=== PATIENT | male | born 1960 | race African-American/Black ===

== ENCOUNTER 2016-11-12 03:54 | Inpatient (IN) | payer MEDICARE, MEDICAID ==
[2016-11-12 04:12] LABS: EOS % 3.5 % (0-6); GRAN % 51.1 % (47-80); HEMATOCRIT 44.4 % (42.0-52.0); HEMOGLOBIN 15.6 gm/dl (14.0-18.0); LYMPH % 35.7 % (16-45); MEAN CORPUSCULAR HGB CONC 35.1 g/dl (32-36); MEAN PLATELET VOLUME 11.2 fl (7.4-10.4); MONO % 8.7 % (0-9); PLATELET COUNT 191 K/uL (130-400); RED BLOOD COUNT 4.31 M/uL (4.40-5.70); RED CELL DISTRIBUTION WIDTH 11.3 % (11.5-14.5); WHITE BLOOD COUNT W/O DIFF 8.4 K/uL (4.2-12.2)
[2016-11-12 04:14] LABS: MEAN CORPUSCULAR HEMOGLOBIN 36.1 pg (27-33)
[2016-11-12 04:21] LABS: BLOOD UREA NITROGEN 10 mg/dL (9-20); CREATININE 0.8 mg/dL (0.66-1.25); EST GLOMERULAR FILTRATION RATE > 60 ml/min; GLUCOSE,RANDOM 114 mg/dL (70-110)
[2016-11-12] MEDS ORDERED: ASPIRIN 81 MG CHEWABLE TABLET PO ONE (04:24)
[2016-11-12] MEDS ORDERED: MAGNESIUM HYDROXIDE/AL HYDROX 30 ML, LIDOCAINE VISC 2% 200 MG PO ONE ×2 (04:26)
[2016-11-12 04:33] LABS: CKMB 34.7 ug/L (0-6)
[2016-11-12 04:36] LABS: TROPONIN I < 0.012 ng/mL (0.00-0.034)
[2016-11-12 04:37] LABS: CREATINE PHOSPHOKINASE > 3200 U/L (55-170)
[2016-11-12] MEDS ORDERED: 0.9 % SODIUM CHLORIDE 1,000 ML BAG IV ONE (04:40)
[2016-11-12 05:04] LABS: CKMB RELATIVE INDEX 1.11 % (0-4)
[2016-11-12 05:08] LABS: URINE APPEARANCE CLEAR; URINE BILIRUBIN NEGATIVE (NEGATIVE); URINE BLOOD NEGATIVE (NEGATIVE); URINE COLOR YELLOW; URINE GLUCOSE (UA) NEGATIVE (NEGATIVE); URINE KETONE NEGATIVE (NEGATIVE); URINE LEUKOCYTE ESTERASE NEGATIVE (NEGATIVE); URINE NITRITE NEGATIVE (NEGATIVE); URINE PROTEIN NEGATIVE (NEGATIVE)
--- NOTE | 2016-11-12 05:22 | Emergency Department Record ---
History of Present Illness - General Chief Complaint: Chest Pain Stated Complaint: CHEST PAIN Time Seen by Provider: 11/12/16 04:58 Source: Patient, EMS Mode of Arrival: EMS Limitations: No limitations - History of Present Illness Initial Comments: pt c/o of sharp chest pain on right intermittant. pt also c/o bilateral ankle pain from playing basketball today. pt is a poor historian Complaint: Chest pain Onset/Timin -: Days(s) Pain Location: Left chest Pain Radiation: None Severity: Severe Consistency: Intermittent Improves With: Nothing Worsens With: Nothing Anginal Symptoms: Dyspnea Treatments Prior to Arrival: None - Related Data Home Medications Medication Instructions Recorded Confirmed Last Taken Aspirin Enteric-Coated [Ecotrin] 81 mg PO DAILY 02/04/14 11/12/16 11/11/16 Atenolol/Chlorthalidone [Tenoretic 1 each PO DAILY 02/04/14 11/12/16 11/11/16 100 Tablet] Famotidine [Pepcid] 20 mg PO BID 02/04/14 11/12/16 11/11/16 Fluphenazine HCl 10 mg PO QPM 02/04/14 11/12/16 11/11/16 Gabapentin [Neurontin] 600 mg PO TID 02/04/14 11/12/16 11/11/16 Loratadine [Claritin] 10 mg PO DAILY 02/04/14 11/12/16 11/11/16 Loxapine Succinate [Loxapine] 25 mg PO QHS 02/04/14 11/12/16 11/11/16 Loxapine Succinate [Loxapine] 100 mg PO QHS 02/04/14 11/12/16 11/11/16 Olanzapine [Zyprexa] 40 mg PO QHS 02/04/14 11/12/16 11/11/16 Tamsulosin HCl [Flomax] 0.4 mg PO DAILY 02/04/14 11/12/16 11/11/16 Brimonidine Tartrate [Alphagan P] 1 drop OP BID 09/15/15 11/12/16 11/11/16 Clonazepam [Klonopin] 0.5 mg PO BID 09/15/15 11/12/16 11/11/16 Naproxen [Naprosyn] 500 mg PO Q12H 09/15/15 11/12/16 11/11/16 Acetaminophen [Tylenol 325Mg] 325 mg PO TID PRN 11/12/16 11/12/16 Unknown Albuterol Sulfate [Ventolin Hfa] 1 - 2 puff IH .EVERY 4-6 HOURS PRN 11/12/1611/2211/12/16 Budesonide/Formoterol Fumarate 2 inh IH BID 11/12/16 11/12/16 11/11/16 [Symbicort 160-4.5 Mcg Inhaler] Cholecalciferol (Vitamin D3) 2,000 unit PO DAILY 11/12/16 11/12/16 11/11/16 [Vitamin D3] Docusate Sodium [Colace] 100 mg PO QHS PRN 11/12/16 11/12/16 Unknown Fluphenazine HCl 5 mg PO QAM 11/12/16 11/12/16 11/11/16 Fluticasone/Salmeterol [Advair 1 each IH BID 11/12/16 11/12/16 11/11/16 250-50 Diskus] Lidocaine Visc 2% 1 ml PO Q2H PRN 11/12/16 11/12/16 Unknown Melatonin 10 mg PO QHS 11/12/16 11/12/16 11/11/16 Multivitamin [Multi-Vitamin Daily] 1 each PO DAILY 11/12/16 11/12/16 11/11/16 Omeprazole 20 mg PO DAILY 11/12/16 11/12/16 11/11/16 Tiotropium [place] [Spiriva] 2 inh IH DAILY 11/12/16 11/12/16 11/11/16 Allergies Allergy/AdvReac Type Severity Reaction Status Date / Time No Known Drug Allergies Allergy Verified 05/05/15 11:45 Travel Screening - Travel/Exposure Within Last 30 Days Have you traveled within the last 30 days?: No - Travel Symptoms Symptom Screening: None Review of Systems Reviewed: No additional complaints except as noted below Constitutional: Reports: As per HPI. Denies: Chills, Fever, Malaise, Night sweats, Weakness, Weight change Eyes: Reports: As per HPI. Denies: Eye discharge, Eye pain, Photophobia, Vision change ENT: Reports: As per HPI. Denies: Congestion, Dental pain, Ear pain, Epistaxis , Hearing loss, Throat pain Respiratory: Reports: As per HPI. Denies: Cough, Dyspnea, Hemoptysis, Stridor, Wheezes Cardiovascular: Reports: As per HPI. Denies: Arrhythmia, Chest pain, Dyspnea on exertion, Edema, Murmurs, Orthopnea, Palpitations, Paroxysmal nocturnal dyspnea, Rheumatic Fever, Syncope Endocrine: Reports: As per HPI. Denies: Fatigue, Heat or cold intolerance, Polydipsia, Polyuria Gastrointestinal: Reports: As per HPI. Denies: Abdominal pain, Constipation, Diarrhea, Hematemesis, Hematochezia, Melena, Nausea, Vomiting Genitourinary: Reports: As per HPI. Denies: Dysuria, Frequency, Hematuria, Incontinence, Retention, Testicular pain, Testicular mass, Urgency Musculoskeletal: Reports: As per HPI. Denies: Arthralgia, Back pain, Gout, Joint swelling, Myalgia, Neck pain Skin: Reports: As per HPI. Denies: Bruising, Change in color, Change in hair/ nails, Lesions, Pruritus, Rash Neurological: Reports: As per HPI. Denies: Abnormal gait, Confusion, Headache, Numbness, Paresthesias, Seizure, Tingling, Tremors, Vertigo, Weakness Psychiatric: Reports: As per HPI. Denies: Anxiety, Auditory hallucinations, Depression, Homicidal thoughts, Suicidal thoughts, Visual hallucinations Hematological/Lymphatic: Reports: As per HPI. Denies: Anemia, Blood Clots, Easy bleeding, Easy bruising, Swollen glands Past Medical History - SOCIAL HISTORY Smoking Status: Light tobacco smoker (<10/day) Alcohol Use: None Drug Use: None - RESPIRATORY Hx Respiratory Disorders: Yes Hx Asthma: Yes - CARDIOVASCULAR Hx Cardio Disorders: Yes Hx Hypertension: Yes - NEURO Hx Neuro Disorders: Yes Hx Headaches: Yes - GI Hx GI Disorders: Yes Hx Reflux: Yes - Hx Genitourinary Disorders: No - ENDOCRINE Hx Endocrine Disorders: No Hx Diabetes: No Hx Thyroid Disease: No - MUSCULOSKELETAL Hx Musculoskeletal Disorders: Yes Hx Arthritis: Yes - PSYCH Hx Psych Problems: No - HEMATOLOGY/ONCOLOGY Hx Hematology/Oncology Disorders: Yes Comment:: HEP C Family Medical History Any Significant Family History?: No Family Hx Comment (NOT TO BE USED IN PLACE OF ITEMS BELOW): unknown Physical Exam - General General Appearance: Alert, Oriented x3, Cooperative, Mild distress, Other (poor historian) - Head Head exam: Normal inspection - Eye Eye exam: Normal appearance, PERRL, EOMI Pupils: Normal accommodation - ENT ENT exam: Normal exam, Mucous membranes moist, Normal external ear exam, Normal orophraynx Ear exam: Normal external inspection. negative: External canal tenderness Nasal Exam: Normal inspection. negative: Discharge, Sinus tenderness Mouth exam: Normal external inspection, Tongue normal Teeth exam: Normal inspection. negative: Dental caries Throat exam: Normal inspection. negative: Tonsillar erythema, Tonsillar exudate - Neck Neck exam: Normal inspection, Full ROM. negative: Tenderness - Respiratory Respiratory exam: Normal lung sounds bilaterally. negative: Respiratory distress - Cardiovascular Cardiovascular Exam: Regular rate, Normal rhythm, Normal heart sounds - GI/Abdominal GI/Abdominal exam: Soft, Normal bowel sounds. negative: Tenderness - Rectal Rectal exam: Deferred - exam: Deferred - Extremities Extremities exam: Normal inspection, Full ROM, Normal capillary refill, Tenderness (bilateral ankles w swelling) - Back Back exam: Reports: Normal inspection, Full ROM. 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 ADM/Transfer/OP Study) - Data Complexity MDM Data: Labs Ordered and/or Reviewed, X-Ray Ordered and/or Reviewed, EKG Ordered and/or Reviewed - Lab Data Result diagrams: 11/12/16 03:45 11/12/16 03:45 Lab Results 11/12/16 11/12/16 11/12/16 Range/Units 03:45 03:45 03:45 WBC 8.4 (4.2-12.2) K/uL Corrected WBC RBC 4.31 L (4.40-5.70) M/uL Hgb 15.6 (14.0-18.0) gm/dl Hct 44.4 (42.0-52.0) % MCV 103.0 H (81-97) fl MCH 36.1 H (27-33) pg MCHC 35.1 (32-36) g/dl RDW 11.3 L (11.5-14.5) % Plt Count 191 (130-400) K/uL MPV 11.2 H (7.4-10.4) fl Gran % 51.1 (47-80) % Lymphocytes % 35.7 (16-45) % Monocytes % 8.7 (0-9) % Eosinophils % 3.5 (0-6) % Basophils % 1.0 (0-6) % D-Dimer 0.53 (0-0.59) mg/L FEU Sodium 139 (136-145) mmol/L Potassium 3.1 L (3.5-5.1) mmol/L Chloride 102 (98-107) mmol/L Carbon Dioxide 26.0 (22-30) mmol/L Anion Gap 11.0 (7-16) BUN 10 (9-20) mg/dL Creatinine 0.8 (0.66-1.25) mg/dL Estimated GFR > 60 ml/min Random Glucose 114 H (70-110) mg/dL Calcium 9.0 (8.5-10.1) mg/dL Creatine Kinase > 3200 H (55-170) U/L CK-MB (CK-2) 34.7 H (0-6) ug/L CK-MB (CK-2) Rel Index 1.11 (0-4) % Troponin I < 0.012 (0.00-0.034) ng/mL NT-Pro-B Natriuret Pep (<125) pg/mL Urine Color Urine Appearance Urine pH (5.0-8.0) Ur Specific [place] (1.002-1.030) Urine Protein (NEGATIVE) Urine Glucose (UA) (NEGATIVE) Urine Ketones (NEGATIVE) Urine Blood (NEGATIVE) Urine Nitrite (NEGATIVE) Urine Bilirubin (NEGATIVE) Urine Urobilinogen (0.20 - 1.00) E.U./dL Ur Leukocyte Esterase (NEGATIVE) 11/12/16 11/12/16 11/12/16 Range/Units 03:45 03:45 04:24 WBC Cancelled (4.2-12.2) K/uL Corrected WBC Cancelled RBC Cancelled (4.40-5.70) M/uL Hgb Cancelled (14.0-18.0) gm/dl Hct Cancelled (42.0-52.0) % MCV Cancelled (81-97) fl MCH Cancelled (27-33) pg MCHC Cancelled (32-36) g/dl RDW Cancelled (11.5-14.5) % Plt Count Cancelled (130-400) K/uL MPV Cancelled (7.4-10.4) fl Gran % Cancelled (47-80) % Lymphocytes % Cancelled (16-45) % Monocytes % Cancelled (0-9) % Eosinophils % Cancelled (0-6) % Basophils % Cancelled (0-6) % D-Dimer (0-0.59) mg/L FEU Sodium (136-145) mmol/L Potassium (3.5-5.1) mmol/L Chloride (98-107) mmol/L Carbon Dioxide (22-30) mmol/L Anion Gap (7-16) BUN (9-20) mg/dL Creatinine (0.66-1.25) mg/dL Estimated GFR ml/min Random Glucose (70-110) mg/dL Calcium (8.5-10.1) mg/dL Creatine Kinase 3104 H (55-170) U/L CK-MB (CK-2) (0-6) ug/L CK-MB (CK-2) Rel Index (0-4) % Troponin I (0.00-0.034) ng/mL NT-Pro-B Natriuret Pep 31.10 (<125) pg/mL Urine Color Urine Appearance Urine pH (5.0-8.0) Ur Specific [place] (1.002-1.030) Urine Protein (NEGATIVE) Urine Glucose (UA) (NEGATIVE) Urine Ketones (NEGATIVE) Urine Blood (NEGATIVE) Urine Nitrite (NEGATIVE) Urine Bilirubin (NEGATIVE) Urine Urobilinogen (0.20 - 1.00) E.U./dL Ur Leukocyte Esterase (NEGATIVE) 11/12/16 Range/Units 05:00 WBC (4.2-12.2) K/uL Corrected WBC RBC (4.40-5.70) M/uL Hgb (14.0-18.0) gm/dl Hct (42.0-52.0) % MCV (81-97) fl MCH (27-33) pg MCHC (32-36) g/dl RDW (11.5-14.5) % Plt Count (130-400) K/uL MPV (7.4-10.4) fl Gran % (47-80) % Lymphocytes % (16-45) % Monocytes % (0-9) % Eosinophils % (0-6) % Basophils % (0-6) % D-Dimer (0-0.59) mg/L FEU Sodium (136-145) mmol/L Potassium (3.5-5.1) mmol/L Chloride (98-107) mmol/L Carbon Dioxide (22-30) mmol/L Anion Gap (7-16) BUN (9-20) mg/dL Creatinine (0.66-1.25) mg/dL Estimated GFR ml/min Random Glucose (70-110) mg/dL Calcium (8.5-10.1) mg/dL Creatine Kinase (55-170) U/L CK-MB (CK-2) (0-6) ug/L CK-MB (CK-2) Rel Index (0-4) % Troponin I (0.00-0.034) ng/mL NT-Pro-B Natriuret Pep (<125) pg/mL Urine Color Yellow Urine Appearance Clear Urine pH 7.5 (5.0-8.0) Ur Specific [place] 1.010 (1.002-1.030) Urine Protein Negative (NEGATIVE) Urine Glucose (UA) Negative (NEGATIVE) Urine Ketones Negative (NEGATIVE) Urine Blood Negative (NEGATIVE) Urine Nitrite Negative (NEGATIVE) Urine Bilirubin Negative (NEGATIVE) Urine Urobilinogen 2.0 H (0.20 - 1.00) E.U./dL Ur Leukocyte Esterase Negative (NEGATIVE) - EKG Data -: EKG Interpreted by Ak EKG: No Acute Changes Disposition Disposition: Admit Clinical Impression: Elevated CPK Chest pain Qualifiers: Chest pain type: unspecified Qualified Code(s): R07.9 - Chest pain, unspecified Disposition: Still a Patient at [facility] Decision to Admit: Admit from ER Decision to Admit Date: 11/12/16 Decision to Admit Time: 05:52 Forms: Patient Portal Access
[2016-11-12] MEDS ORDERED: ACETAMINOPHEN 500 MG TABLET PO PRN (06:23)
[2016-11-12] MEDS ORDERED: DOCUSATE SODIUM 100 MG CAPSULE PO PRN (06:23)
[2016-11-12] MEDS ORDERED: NITROGLYCERIN 0.4MG SL TABLET #25 BTL SL PRN (06:23)
[2016-11-12] MEDS ORDERED: ALBUTEROL HFA 8 GM INHALER INH PRN (06:23)
[2016-11-12 06:44] LABS: LDL CHOLESTEROL/MEASURED 42.7 mg/dL (0-100)
[2016-11-12] MEDS: FLUTICASONE/SALMETEROL 250/50 DISKUS INH SCH (08:28)
[2016-11-12] MEDS: ALBUTEROL HFA 8 GM INHALER INH PRN ×2 (08:29→12:37)
[2016-11-12] MEDS ORDERED: CALCIUM CARBONATE 500 MG TAB.CHEW PO PRN (09:17)
[2016-11-12] MEDS ORDERED: ASPIRIN 325 MG TAB ENTERIC-COATED PO SCH (10:00)
[2016-11-12] MEDS ORDERED: GABAPENTIN 300 MG CAPSULE PO SCH (10:00)
[2016-11-12] MEDS ORDERED: FLUPHENAZINE HCL 5 MG PO SCH (10:00)
[2016-11-12] MEDS ORDERED: Non-Formulary MISC (Omeprazole [Omeprazole] 20 MG) PO SCH (10:00)
[2016-11-12] MEDS ORDERED: BRIMONIDINE TARTRATE OP SCH (10:00)
[2016-11-12] MEDS ORDERED: TAMSULOSIN HCL 0.4 MG CAP.ER.24H PO SCH (10:00)
[2016-11-12] MEDS ORDERED: FLUTICASONE/SALMETEROL 250/50 DISKUS INH SCH ×2 (10:00)
[2016-11-12] MEDS ORDERED: ENOXAPARIN 40 MG/0.4 ML SYR SQ SCH (10:00)
[2016-11-12] MEDS ORDERED: CHLORTHALIDONE 25 MG TABLET PO SCH (10:00)
[2016-11-12] MEDS ORDERED: ATENOLOL 50 MG TABLET PO SCH (10:00)
[2016-11-12] MEDS ORDERED: FAMOTIDINE 20MG TABLET PO SCH (10:00)
[2016-11-12] MEDS ORDERED: POTASSIUM CHLORIDE 20 MEQ TABLET PO SCH (10:00)
[2016-11-12] MEDS ORDERED: CLONAZEPAM 1MG TABLET PO SCH (10:00)
--- NOTE | 2016-11-12 11:44 | RADIOLOGY REPORT ---
EXAM: CHEST, TWO VIEWS HISTORY: DIFFICULTY IN BREATHING. TECHNIQUE: Frontal and lateral views of the chest were performed. FINDINGS: The heart size is normal. No pulmonary vascular congestion. No infiltrate or pleural effusion. Mild degenerative change of the thoracic spine. IMPRESSION: NO ACUTE DISEASE PROCESS. JOB NUMBER: [id number] MTDD
--- NOTE | 2016-11-12 11:47 | RADIOLOGY REPORT ---
EXAM: RIGHT ANKLE HISTORY: INJURY. TECHNIQUE: Three views of the right ankle were performed. FINDINGS: No evidence of fracture or dislocation. No lytic or blastic lesion. No soft tissue swelling. No calcaneal spur. IMPRESSION: NEGATIVE RIGHT ANKLE EXAMINATION. JOB NUMBER: [id number] MTDD
--- NOTE | 2016-11-12 11:49 | RADIOLOGY REPORT ---
EXAM: LEFT ANKLE HISTORY: INJURY. TECHNIQUE: Three views of the left ankle were performed. FINDINGS: No evidence of fracture or dislocation. No lytic or blastic lesion. There is mild soft tissue swelling. There is a small calcaneal spur present. IMPRESSION: MILD SOFT TISSUE SWELLING. SMALL CALCANEAL SPUR. JOB NUMBER: [id number] MTDD
[2016-11-12 12:30] LABS: CKMB 24.3 ug/L (0-6)
[2016-11-12 12:45] LABS: TROPONIN I < 0.012 ng/mL (0.00-0.034)
[2016-11-12 13:17] LABS: CREATINE PHOSPHOKINASE 2463 U/L (55-170)
[2016-11-12] MEDS ORDERED: LOXAPINE SUCCINATE 25 MG PO SCH (22:00)
[2016-11-12] MEDS ORDERED: MELATONIN 5 MG TABLET PO SCH (22:00)
[2016-11-12] MEDS ORDERED: LOXAPINE SUCCINATE 100 MG PO SCH (22:00)
[2016-11-12] MEDS ORDERED: FLUPHENAZINE HCL 10 MG PO SCH (22:00)
[2016-11-12] MEDS ORDERED: OLANZAPINE 5MG TABLET PO SCH (22:00)
[2016-11-12] MEDS ORDERED: TEMAZEPAM 15 MG CAPSULE PO PRN (22:00)
--- NOTE | 2016-11-15 16:18 | History and Physical Report ---
DATE OF ADMISSION: 11/12/2016 CHIEF COMPLAINT/HISTORY OF CHIEF COMPLAINT: Chest pain and bilateral ankle pain. This 55-year-old male presented to the emergency department with sharp chest pain on the right side. He has also bilateral ankle pain from playing basketball on the day of admission, actually yesterday. He said he fell down 3 times while playing basketball, and his ankles hurt. He is a very poor historian because of his schizophrenia and psychosis and mental capabilities. He went through school in special education, and he has been diagnosed with schizophrenia since he was 34 years old. According to the patient, that was when he started seeing a psychiatrist. He is a poor historian. He was seen in the emergency department by Dr. Galeas with diagnosis of elevated CPK with chest pain. MEDICAL HISTORY: Psychosis versus schizophrenia. He went through school through special education. He also has GERD, hypertension, asthma, arthritis, hep C. SURGICAL HISTORY: Right arm surgery, T&A, cyst removal. CURRENT MEDICATIONS: Lidocaine viscous 2% q.2 hours p.r.n., Colace 100 mg q.h.s., Tylenol 325 t.i.d. p.r.n., fluphenazine 5 mg q.a.m., multiple vitamins 1 q.daily, melatonin 10 mg at h.s., Ventolin inhaler 2 puffs every 4 hours p.r.n., Advair 250/50 1 puff b.i.d., Symbicort 2 puffs b.i.d. These both are kind of the same medication. I cannot imagine he is on both of these, but it is on his list. Vitamin D3 2000 units daily, Spiriva 2 inhalations daily, omeprazole 20 mg daily, tamsulosin 0.4 mg daily, Zyprexa 40 mg h.s., Naprosyn 500 q.12 hours, loxapine 100 mg at h.s. and also loxapine 25 mg at h.s., so it is 125 at h.s. Claritin 10 mg q.daily, Neurontin 600 mg t.i.d. He takes also this medication both morning and night. This one is fluphenazine 10 mg at bedtime. Pepcid 20 mg b.i.d., Klonopin 0.5 mg b.i.d. p.r.n., Alphagan P 1 drop both eyes b.i.d., atenolol/chlorthalidone 100/25 q.daily, and aspirin 81 mg q.daily. This will have to be verified, these medications from the halfway. He lives at [facility]. We will see if we can get their med sheets. ALLERGIES: No known drug allergies. SOCIAL HISTORY: Tobacco use. No alcohol or drug use. FAMILY HISTORY: Unobtainable. SYSTEMS REVIEW: HEENT: No upper respiratory infection symptoms, cough, cold, or congestion. Cardiovascular: See chief complaint. He has right-sided sharp chest pain, intermittent. No pain at my evaluation. He denies any heart disease or lung disease, except he does have asthma. Respiratory: He has asthma, uses inhalers, and smokes cigarettes. Denies any difficulty breathing today or yesterday. No cough or congestion. Gastrointestinal: No nausea, vomiting, diarrhea, black stools, or bloody stools. Eating meals nicely here. Genitourinary: No dysuria, hematuria, frequency, burning on urination. Musculoskeletal: He states he has arthritis. Bilateral ankles are hurting from falling down 3 times playing basketball. Neurologic: No CVA, paralysis, or paresthesias. He has a neurological disorder where he sees psychiatry, most likely schizophrenia or psychosis. He was not able to exactly tell me what psychiatric disease he has. Endocrine: No diabetes or thyroid disease. Integumentary: No rash, ulcers, changes moles, or yellow skin. PHYSICAL EXAMINATION: VITAL SIGNS: Height 6 feet. Weight 238 pounds. Temperature 98.3. Pulse 64. Blood pressure 136/78. Respiratory rate 20. Pulse ox 94% on room air. HEENT: Pupils equal, round, and reactive to light and accommodation. Extraocular muscles are intact. Throat is clean. Nose is clear. Tympanic membranes are crocker. NECK: Supple. No jugular venous distention. No hepatojugular reflux. No carotid bruits. Thyroid is smooth. CARDIOVASCULAR: Regular rate and rhythm without murmurs, clicks, rubs, or gallops. RESPIRATORY: Clear to auscultation and percussion. ABDOMEN: Soft, nontender. No hepatosplenomegaly. No masses. No tenderness. Bowel sounds are active. No bruits. He is obese. EXTREMITIES: There is pain in both ankles. No edema, swelling, or deformity noted. No pitting edema. No cyanosis. Full range of motion. Peripheral pulses good. BREASTS: Normal male breasts. RECTAL AND GENITALIA: Deferred. NEUROLOGIC: Cranial nerves II-XII intact. No gross defects in sensation. Normal strength. Normal deep tendon reflexes are equal bilaterally. Babinski is negative. MENTAL STATUS: He went to school through special ed. He got his GED, but he was failed many times in multiple classes. Alert, oriented x 3. IMPRESSION: 1. Chest pain, rule out cardiac disease. 2. Rhabdomyolysis. 3. Bilateral ankle sprains. 4. Psychosis. 5. Hypertension. 6. GERD. 7. Asthma. 8. Benign prostatic hyperplasia. PLAN: Cardiac enzymes, cardiac monitoring, IV fluids to clear the rhabdomyolysis, pain control with Tylenol. We are admitting to inpatient care based on my medical assessment after considering of patient risk factors, age, comorbidity, and patient's presenting symptoms. I expect this patient will remain in the hospital greater than or equal to 2 midnights and the service needed warrants inpatient care because of elevated CK-MB, need for cardiac clearance, and flushing the kidneys so that with rhabdomyolysis he does not go into renal failure. Estimated length of stay is 2-3 days. The patient may reasonably be expected to be discharged or transferred to a hospital within 96 hours after admission to [facility]. Services needed: IV fluids. I certify that my determination is in accordance with my understanding of Medicare requirements for reasonable and necessary inpatient services. [facility]
== END 2016-11-12 13:05 | disposition home or self-care (01) | DRG 313 ==
LOC: ER 03:54 → MEDSURG 06:17 → OBSVTOIN 07:22
PROVIDERS: ADMIT Emergency Medicine; ATTEND Emergency Medicine
DX: R07.9 Chest pain, unspecified (principal); M62.82 Rhabdomyolysis; R74.9 Abnormal serum enzyme level, unspecified; F20.9 Schizophrenia, unspecified; I10 Essential (primary) hypertension; F17.200 Nicotine dependence, unspecified, uncomplicated; N40.0 Benign prostatic hyperplasia without lower urinary tract symptoms; S93.402A Sprain of unspecified ligament of left ankle, initial encounter; S93.401A Sprain of unspecified ligament of right ankle, initial encounter; J45.909 Unspecified asthma, uncomplicated
CPT/HCPCS: 71020; 80048; 80061; 81003; 82550; 82553; 83874; 83880; 84484; 85025; 85379; 93005; 93010; 94640; 94760; 99223; 99285; J1650

== ENCOUNTER 2017-03-04 11:44 | Emergency (ER) | payer MEDICARE, MEDICAID ==
[2017-03-04 13:13] LABS: BASO % 0.9 % (0-6); EOS % 2.4 % (0-6); GRAN % 58.8 % (47-80); HEMOGLOBIN 15.6 gm/dl (14.0-18.0); LYMPH % 28.4 % (16-45); MEAN CELL VOLUME 103.2 fl (81-97); MEAN CORPUSCULAR HGB CONC 34.7 g/dl (32-36); MEAN PLATELET VOLUME 10.4 fl (7.4-10.4); MONO % 9.5 % (0-9); PLATELET COUNT 201 K/uL (130-400); RED BLOOD COUNT 4.36 M/uL (4.40-5.70); RED CELL DISTRIBUTION WIDTH 11.5 % (11.5-14.5)
[2017-03-04 13:14] LABS: MEAN CORPUSCULAR HEMOGLOBIN 35.7 pg (27-33)
[2017-03-04 13:21] LABS: INR 1.11; PARTIAL THROMBOPLASTIN TIME 30.6 SECONDS (24.5-39.1)
--- NOTE | 2017-03-04 14:18 | Emergency Department Record ---
History of Present Illness - General Chief complaint: Nosebleed/epistaxis Stated complaint: BLOODY NOSE WONT STOP Time Seen by Provider: 03/04/17 13:39 Source: Patient Mode of Arrival: Ambulatory Limitations: No limitations - History of Present Illness Initial comments: pt is having intermittant nosebleeds complaint: Epistaxis Onset/Timin -: Days(s) Location: Nose Consistency: Now resolved Improves with: None Worsens with: None Context-Epistaxis: History of similar - Related Data Allergies Allergy/AdvReac Type Severity Reaction Status Date / Time No Known Drug Allergies Allergy Verified 03/04/17 11:47 Travel Screening - Travel/Exposure Within Last 30 Days Have you traveled within the last 30 days?: No - Travel/Exposure Within Last Year Have you traveled outside the [place] in the last year?: No - Additonal Travel Details Have you been exposed to anyone with a communicable illness?: No - Travel Symptoms Symptom Screening: None Review of Systems Reviewed: No additional complaints except as noted below Constitutional: Reports: As per HPI. Denies: Chills, Fever, Malaise, Night sweats, Weakness, Weight change Eyes: Reports: As per HPI. Denies: Eye discharge, Eye pain, Photophobia, Vision change ENT: Reports: As per HPI. Denies: Congestion, Dental pain, Ear pain, Epistaxis , Hearing loss, Throat pain Respiratory: Reports: As per HPI. Denies: Cough, Dyspnea, Hemoptysis, Stridor, Wheezes Cardiovascular: Reports: As per HPI. Denies: Arrhythmia, Chest pain, Dyspnea on exertion, Edema, Murmurs, Orthopnea, Palpitations, Paroxysmal nocturnal dyspnea, Rheumatic Fever, Syncope Endocrine: Reports: As per HPI. Denies: Fatigue, Heat or cold intolerance, Polydipsia, Polyuria Gastrointestinal: Reports: As per HPI. Denies: Abdominal pain, Constipation, Diarrhea, Hematemesis, Hematochezia, Melena, Nausea, Vomiting Genitourinary: Reports: As per HPI. Denies: Dysuria, Frequency, Hematuria, Incontinence, Retention, Testicular pain, Testicular mass, Urgency Musculoskeletal: Reports: As per HPI. Denies: Arthralgia, Back pain, Gout, Joint swelling, Myalgia, Neck pain Skin: Reports: As per HPI. Denies: Bruising, Change in color, Change in hair/ nails, Lesions, Pruritus, Rash Neurological: Reports: As per HPI. Denies: Abnormal gait, Confusion, Headache, Numbness, Paresthesias, Seizure, Tingling, Tremors, Vertigo, Weakness Psychiatric: Reports: As per HPI. Denies: Anxiety, Auditory hallucinations, Depression, Homicidal thoughts, Suicidal thoughts, Visual hallucinations Hematological/Lymphatic: Reports: As per HPI. Denies: Anemia, Blood Clots, Easy bleeding, Easy bruising, Swollen glands Past Medical History - SOCIAL HISTORY Smoking Status: Light tobacco smoker (<10/day) Alcohol Use: None Drug Use: None - RESPIRATORY Hx Respiratory Disorders: Yes Hx Asthma: Yes - CARDIOVASCULAR Hx Cardio Disorders: Yes Hx Hypertension: Yes - NEURO Hx Neuro Disorders: Yes Hx Headaches: Yes - GI Hx GI Disorders: Yes Hx Reflux: Yes - Hx Genitourinary Disorders: No - ENDOCRINE Hx Endocrine Disorders: No Hx Diabetes: No Hx Thyroid Disease: No - MUSCULOSKELETAL Hx Musculoskeletal Disorders: Yes Hx Arthritis: Yes - PSYCH Hx Psych Problems: No Comment:: STATES FEELS DEPRESSED - HEMATOLOGY/ONCOLOGY Hx Hematology/Oncology Disorders: Yes Comment:: HEP C Family Medical History Any Significant Family History?: Yes Family Hx Comment (NOT TO BE USED IN PLACE OF ITEMS BELOW): unknown Physical Exam - General General Appearance: Alert, Oriented x3, Cooperative, Mild distress - Head Head exam: Normal inspection - Eye Eye exam: Normal appearance, PERRL, EOMI Pupils: Normal accommodation - ENT ENT exam: Normal exam, Mucous membranes moist, Normal external ear exam, Normal orophraynx, TM's normal bilaterally Ear exam: Normal external inspection. negative: External canal tenderness Nasal Exam: Active bleeding, Dried blood. negative: Discharge, Sinus tenderness Mouth exam: Normal external inspection, Tongue normal Teeth exam: Normal inspection. negative: Dental caries Throat exam: Normal inspection. negative: Tonsillar erythema, Tonsillar exudate - Neck Neck exam: Normal inspection, Full ROM. negative: Tenderness - Respiratory Respiratory exam: Normal lung sounds bilaterally. negative: Respiratory distress - Cardiovascular Cardiovascular Exam: Regular rate, Normal rhythm, Normal heart sounds - GI/Abdominal GI/Abdominal exam: Soft, Normal bowel sounds. negative: Tenderness - Rectal Rectal exam: Deferred - exam: Deferred - Extremities Extremities exam: Normal inspection, Full ROM, Normal capillary refill. negative: Tenderness - Back Back exam: Reports: Normal inspection, Full ROM. Denies: Muscle spasm, Rash noted, Tenderness - Neurological Neurological exam: Alert, CN II-XII intact, Normal gait, Oriented X3 - Psychiatric Psychiatric exam: Normal affect, Normal mood - Skin Skin exam: Dry, Intact, Normal color, Warm Course Vital Signs 03/04/17 11:56 Temperature 98.7 F Pulse Rate 57 L Respiratory 20 Rate Blood Pressure 149/99 Pulse Ox 100 - Reevaluation(s) Reevaluation #1: 03/04/17 14:16 d/w dr bhat who said leave packing in for 3 days and when its pulled if it bleeds pack again and follow up with him. Reevaluation #2: 03/04/17 14:18 viscous lid placed then rhino rocket. bleed appears posterior Medical Decision Making - Lab Data Result diagrams: 03/04/17 13:00 Lab Results 03/04/17 03/04/17 Range/Units 13:00 13:00 WBC 8.0 (4.2-12.2) K/uL RBC 4.36 L (4.40-5.70) M/uL Hgb 15.6 (14.0-18.0) gm/dl Hct 45.0 (42.0-52.0) % MCV 103.2 H (81-97) fl MCH 35.7 H (27-33) pg MCHC 34.7 (32-36) g/dl RDW 11.5 (11.5-14.5) % Plt Count 201 (130-400) K/uL MPV 10.4 (7.4-10.4) fl Gran % 58.8 (47-80) % Lymphocytes % 28.4 (16-45) % Monocytes % 9.5 H (0-9) % Eosinophils % 2.4 (0-6) % Basophils % 0.9 (0-6) % PT 12.0 (9.5-12.1) SECONDS INR 1.11 APTT 30.60 (24.5-39.1) SECONDS Disposition Disposition: Discharge Clinical Impression: Epistaxis Disposition: Home, Self-Care Condition: (1) Good Instructions: Nosebleed (ED) Additional Instructions: have packing removed in 3 days. follow up with dr bhat. return sooner if worse. dont pick nose or blow nose. sleep elevated Quality - Quality Measures Quality Measures: N/A - Blood Pressure Screening Does Patient Have Any of the Following: No Blood Pressure Classification: Hypertensive Reading Systolic Measurement: 149 Diastolic Measurement: 99 Screening for High Blood Pressure: < First Hypertensive BP, F/U Documented > [ G8950] First Hypertensive Follow-up Interventions: Follow-up with rescreen GT 1 day and LT 4 weeks.
--- NOTE | 2017-03-05 07:11 | Emergency Department Record ---
History of Present Illness - General Chief complaint: Nosebleed/epistaxis Stated complaint: BLOODY NOSE WONT STOP Time Seen by Provider: 03/04/17 13:39 Source: Patient Mode of Arrival: Ambulatory Limitations: No limitations - History of Present Illness MD complaint: Epistaxis Onset/Timin -: Days(s) Location: Nose Consistency: Now resolved Improves with: None Worsens with: None Context-Epistaxis: History of similar - Related Data Previous Rx's Medication Instructions Recorded Amoxicillin/Potassium Clav 1 each PO BID #14 tablet 03/05/17 [Augmentin 875-125 Tablet] Allergies Allergy/AdvReac Type Severity Reaction Status Date / Time No Known Drug Allergies Allergy Verified 03/04/17 11:47 Travel Screening - Travel/Exposure Within Last 30 Days Have you traveled within the last 30 days?: No - Travel/Exposure Within Last Year Have you traveled outside the [place] in the last year?: No - Additonal Travel Details Have you been exposed to anyone with a communicable illness?: No - Travel Symptoms Symptom Screening: None Review of Systems Constitutional: Reports: As per HPI. Denies: Chills, Fever, Malaise, Night sweats, Weakness, Weight change Eyes: Reports: As per HPI. Denies: Eye discharge, Eye pain, Photophobia, Vision change ENT: Reports: As per HPI. Denies: Congestion, Dental pain, Ear pain, Epistaxis , Hearing loss, Throat pain Respiratory: Reports: As per HPI. Denies: Cough, Dyspnea, Hemoptysis, Stridor, Wheezes Cardiovascular: Reports: As per HPI. Denies: Arrhythmia, Chest pain, Dyspnea on exertion, Edema, Murmurs, Orthopnea, Palpitations, Paroxysmal nocturnal dyspnea, Rheumatic Fever, Syncope Endocrine: Reports: As per HPI. Denies: Fatigue, Heat or cold intolerance, Polydipsia, Polyuria Gastrointestinal: Reports: As per HPI. Denies: Abdominal pain, Constipation, Diarrhea, Hematemesis, Hematochezia, Melena, Nausea, Vomiting Genitourinary: Reports: As per HPI. Denies: Dysuria, Frequency, Hematuria, Incontinence, Retention, Testicular pain, Testicular mass, Urgency Musculoskeletal: Reports: As per HPI. Denies: Arthralgia, Back pain, Gout, Joint swelling, Myalgia, Neck pain Skin: Reports: As per HPI. Denies: Bruising, Change in color, Change in hair/ nails, Lesions, Pruritus, Rash Neurological: Reports: As per HPI. Denies: Abnormal gait, Confusion, Headache, Numbness, Paresthesias, Seizure, Tingling, Tremors, Vertigo, Weakness Psychiatric: Reports: As per HPI. Denies: Anxiety, Auditory hallucinations, Depression, Homicidal thoughts, Suicidal thoughts, Visual hallucinations Hematological/Lymphatic: Reports: As per HPI. Denies: Anemia, Blood Clots, Easy bleeding, Easy bruising, Swollen glands Past Medical History - SOCIAL HISTORY Smoking Status: Light tobacco smoker (<10/day) Alcohol Use: None Drug Use: None - RESPIRATORY Hx Respiratory Disorders: Yes Hx Asthma: Yes - CARDIOVASCULAR Hx Cardio Disorders: Yes Hx Hypertension: Yes - NEURO Hx Neuro Disorders: Yes Hx Headaches: Yes - GI Hx GI Disorders: Yes Hx Reflux: Yes - Hx Genitourinary Disorders: No - ENDOCRINE Hx Endocrine Disorders: No Hx Diabetes: No Hx Thyroid Disease: No - MUSCULOSKELETAL Hx Musculoskeletal Disorders: Yes Hx Arthritis: Yes - PSYCH Hx Psych Problems: No Comment:: STATES FEELS DEPRESSED - HEMATOLOGY/ONCOLOGY Hx Hematology/Oncology Disorders: Yes Comment:: HEP C Family Medical History Any Significant Family History?: Yes Family Hx Comment (NOT TO BE USED IN PLACE OF ITEMS BELOW): unknown Physical Exam - General Limitations: No limitations Course Vital Signs 03/04/17 03/04/17 11:56 14:36 Temperature 98.7 F Pulse Rate 57 L 60 Respiratory 20 20 Rate Blood Pressure 149/99 152/95 Pulse Ox 100 98 - Reevaluation(s) Reevaluation #1: 03/05/17 07:08 [facility] notified to nut picker rx Medical Decision Making - Lab Data Result diagrams: 03/04/17 13:00 Lab Results 03/04/17 03/04/17 Range/Units 13:00 13:00 WBC 8.0 (4.2-12.2) K/uL RBC 4.36 L (4.40-5.70) M/uL Hgb 15.6 (14.0-18.0) gm/dl Hct 45.0 (42.0-52.0) % MCV 103.2 H (81-97) fl MCH 35.7 H (27-33) pg MCHC 34.7 (32-36) g/dl RDW 11.5 (11.5-14.5) % Plt Count 201 (130-400) K/uL MPV 10.4 (7.4-10.4) fl Gran % 58.8 (47-80) % Lymphocytes % 28.4 (16-45) % Monocytes % 9.5 H (0-9) % Eosinophils % 2.4 (0-6) % Basophils % 0.9 (0-6) % PT 12.0 (9.5-12.1) SECONDS INR 1.11 APTT 30.60 (24.5-39.1) SECONDS Disposition Disposition: Discharge Clinical Impression: Epistaxis Disposition: Home, Self-Care Condition: (1) Good Instructions: Nosebleed (ED) Additional Instructions: have packing removed in 3 days. follow up with dr bhat. return sooner if worse. dont pick nose or blow nose. sleep elevated Prescriptions: Amoxicillin/Potassium Clav [Augmentin 875-125 Tablet] 1 each PO BID #14 tablet Forms: Patient Portal Access Quality - Quality Measures Quality Measures: N/A - Blood Pressure Screening Does Patient Have Any of the Following: No Blood Pressure Classification: Hypertensive Reading Systolic Measurement: 152 Diastolic Measurement: 95 Screening for High Blood Pressure: < First Hypertensive BP, F/U Documented > [ G8950] First Hypertensive Follow-up Interventions: Follow-up with rescreen GT 1 day and LT 4 weeks.
== END 2017-03-04 14:38 | disposition home or self-care (01) ==
LOC: ER 11:44
DX: R04.0 Epistaxis (principal); I10 Essential (primary) hypertension
CPT/HCPCS: 30905; 85025; 85610; 85730; 99283; 99284

== ENCOUNTER 2018-02-05 05:40 | Emergency (ER) | payer MEDICARE, MEDICAID ==
[2018-02-05] MEDS ORDERED: HYDROCODONE/APAP 5/325MG TABLET PO ONE (06:10)
[2018-02-05] MEDS ORDERED: AMOXICILLIN/POTASSIUM CLAV 875MG/125MG TABLET PO ONE (06:10)
[2018-02-05] MEDS ORDERED: KETOROLAC 30 MG/ML VIAL IM ONE (06:10)
--- NOTE | 2018-02-05 06:17 | Emergency Department Record ---
History of Present Illness - General Chief complaint: Dental Stated complaint: DENTAL PAIN,ABCESS Time Seen by Provider: 02/05/18 06:06 Source: Patient, [employer] Mode of Arrival: Ambulatory Limitations: No limitations - History of Present Illness Initial comments: pt c/o pain in his tooth and throat MD complaint: Sore throat, Tooth pain Onset/Timin -: Days(s) Location: Throat Severity scale (1-10): 10 Quality: Aching Consistency: Constant Improves with: None Worsens with: Swallowing Context- Dental: History of dental caries, Poor dental care Associated Symptoms: Sore throat - Related Data Previous Rx's Medication Instructions Recorded Amoxicillin/Potassium Clav 1 each PO BID #14 tablet 03/05/17 [Augmentin 875-125 Tablet] Amoxicillin/Potassium Clav 1 tab PO BID #14 tab 02/05/18 [Augmentin 875-125 Tablet] Hydrocodone/APAP 5/325Mg [[place] 1 each PO Q6H #7 tab 02/05/18 5Mg/325Mg] Allergies Allergy/AdvReac Type Severity Reaction Status Date / Time No Known Drug Allergies Allergy Verified 02/05/18 05:52 Travel Screening - Travel/Exposure Within Last 30 Days Have you traveled within the last 30 days?: No - Travel/Exposure Within Last Year Have you traveled outside the [place] in the last year?: No - Additonal Travel Details Have you been exposed to anyone with a communicable illness?: No - Travel Symptoms Symptom Screening: None Review of Systems Reviewed: No additional complaints except as noted below Constitutional: Reports: As per HPI. Denies: Chills, Fever, Malaise, Night sweats, Weakness, Weight change Eyes: Reports: As per HPI. Denies: Eye discharge, Eye pain, Photophobia, Vision change ENT: Reports: As per HPI. Denies: Congestion, Dental pain, Ear pain, Epistaxis , Hearing loss, Throat pain Respiratory: Reports: As per HPI. Denies: Cough, Dyspnea, Hemoptysis, Stridor, Wheezes Cardiovascular: Reports: As per HPI. Denies: Arrhythmia, Chest pain, Dyspnea on exertion, Edema, Murmurs, Orthopnea, Palpitations, Paroxysmal nocturnal dyspnea, Rheumatic Fever, Syncope Endocrine: Reports: As per HPI. Denies: Fatigue, Heat or cold intolerance, Polydipsia, Polyuria Gastrointestinal: Reports: As per HPI. Denies: Abdominal pain, Constipation, Diarrhea, Hematemesis, Hematochezia, Melena, Nausea, Vomiting Genitourinary: Reports: As per HPI. Denies: Dysuria, Frequency, Hematuria, Incontinence, Retention, Testicular pain, Testicular mass, Urgency Musculoskeletal: Reports: As per HPI. Denies: Arthralgia, Back pain, Gout, Joint swelling, Myalgia, Neck pain Skin: Reports: As per HPI. Denies: Bruising, Change in color, Change in hair/ nails, Lesions, Pruritus, Rash Neurological: Reports: As per HPI. Denies: Abnormal gait, Confusion, Headache, Numbness, Paresthesias, Seizure, Tingling, Tremors, Vertigo, Weakness Psychiatric: Reports: As per HPI. Denies: Anxiety, Auditory hallucinations, Depression, Homicidal thoughts, Suicidal thoughts, Visual hallucinations Hematological/Lymphatic: Reports: As per HPI. Denies: Anemia, Blood Clots, Easy bleeding, Easy bruising, Swollen glands Past Medical History - SOCIAL HISTORY Smoking Status: Light tobacco smoker (<10/day) Alcohol Use: None - RESPIRATORY Hx Respiratory Disorders: Yes Hx Asthma: Yes - CARDIOVASCULAR Hx Cardio Disorders: Yes Hx Hypertension: Yes - NEURO Hx Neuro Disorders: Yes Hx Headaches: Yes - GI Hx GI Disorders: Yes Hx Reflux: Yes - Hx Genitourinary Disorders: No - ENDOCRINE Hx Endocrine Disorders: No Hx Diabetes: No Hx Thyroid Disease: No - MUSCULOSKELETAL Hx Musculoskeletal Disorders: Yes Hx Arthritis: Yes - PSYCH Hx Psych Problems: No Comment:: STATES FEELS DEPRESSED - HEMATOLOGY/ONCOLOGY Hx Hematology/Oncology Disorders: Yes Comment:: HEP C Family Medical History Any Significant Family History?: No Family Hx Comment (NOT TO BE USED IN PLACE OF ITEMS BELOW): unknown Physical Exam - General General Appearance: Alert, Oriented x3, Cooperative, Mild distress - Head Head exam: Normal inspection - Eye Eye exam: Normal appearance, PERRL, EOMI Pupils: Normal accommodation - ENT ENT exam: Normal exam, Mucous membranes moist, Normal external ear exam, Normal orophraynx, TM's normal bilaterally Ear exam: Normal external inspection. negative: External canal tenderness Nasal Exam: Normal inspection. negative: Discharge, Sinus tenderness Mouth exam: Normal external inspection, Tongue normal Teeth exam: Dental caries, Dental tenderness # Throat exam: Tonsillar erythema. negative: Tonsillar exudate - Neck Neck exam: Full ROM, Lymphadenopathy. negative: Tenderness - Respiratory Respiratory exam: Normal lung sounds bilaterally. negative: Respiratory distress - Cardiovascular Cardiovascular Exam: Regular rate, Normal rhythm, Normal heart sounds - GI/Abdominal GI/Abdominal exam: Soft, Normal bowel sounds. negative: Tenderness - Rectal Rectal exam: Deferred - exam: Deferred - Extremities Extremities exam: Normal inspection, Full ROM, Normal capillary refill. negative: Tenderness - Back Back exam: Reports: Normal inspection, Full ROM. Denies: Muscle spasm, Rash noted, Tenderness - Neurological Neurological exam: Alert, CN II-XII intact, Normal gait, Oriented X3 - Psychiatric Psychiatric exam: Normal affect, Normal mood - Skin Skin exam: Dry, Intact, Normal color, Warm Course Vital Signs 02/05/18 05:47 Temperature 98.0 F Pulse Rate [ 81 Pulse Ox Probe] Respiratory 16 Rate Blood Pressure 131/92 [Left Arm] Pulse Ox 100 Disposition Disposition: Discharge Clinical Impression: Pain due to dental caries Disposition: Home, Self-Care Condition: (1) Good Instructions: Dental Abscess (ED) Additional Instructions: see dentist PAGE. return sooner if worse. follow up with family doctor. Prescriptions: Amoxicillin/Potassium Clav [Augmentin 875-125 Tablet] 1 tab PO BID #14 tab Hydrocodone/APAP 5/325Mg [[place] 5Mg/325Mg] 1 each PO Q6H #7 tab Quality - Quality Measures Quality Measures: N/A - Blood Pressure Screening Does Patient Have Any of the Following: Active Dx of HTN Blood Pressure Classification: Hypertensive Reading Systolic Measurement: 131 Diastolic Measurement: 92 Screening for High Blood Pressure: Patient Exclusion, Hx of HTN [G9744]
== END 2018-02-05 06:46 | disposition home or self-care (01) ==
LOC: ER 05:40
DX: K02.9 Dental caries, unspecified (principal); J02.9 Acute pharyngitis, unspecified; I10 Essential (primary) hypertension; F17.210 Nicotine dependence, cigarettes, uncomplicated
CPT/HCPCS: 99283 ×2; 96372; J1885

== ENCOUNTER 2018-04-15 22:12 | Emergency (ER) | payer MEDICARE, MEDICAID ==
--- NOTE | 2018-04-15 22:22 | Emergency Department Record ---
History of Present Illness - General Chief complaint: Lower Extremity Pain Stated complaint: LEG PAIN Time Seen by Provider: 04/15/18 22:17 Source: Patient, EMS Mode of Arrival: EMS Limitations: No limitations - History of Present Illness Initial comments: 57 yo male presents to ED for evaluation of lower extremity swelling and pain for the past 3 weeks. Patient is from [facility] [facility] [address], history is limited as he took Clonazepam x 2 prior to arrival. Patient denies recent injury but does report injury approximately 7 years ago. Review of the patient's medication list, patient takes Lasix 20 mg daily and potassium daily. MD Complaint: Extremity pain, Extremity swelling Onset/Timin -: Week(s) Location: Right History of Same: Yes Quality: Aching Consistency: Constant Improves with: Nothing Worsens with: Nothing Associated Symptoms: Denies other symptoms - Related Data Home Medications Medication Instructions Recorded Confirmed Last Taken Fluphenazine HCl 50 mg IJ ASDIR 04/15/18 04/15/18 Unknown Furosemide [Lasix] 20 mg PO DAILY 04/15/18 04/15/18 Unknown Oxymetazoline HCl [Nasal [place]] 2 spray NS Q4H PRN 04/15/18 04/15/18 Unknown Potassium Chloride [Klor-Con 10] 10 meq PO DAILY 04/15/18 04/15/18 Unknown Allergies Allergy/AdvReac Type Severity Reaction Status Date / Time No Known Drug Allergies Allergy Verified 02/05/18 05:52 Review of Systems ROS unobtainable: Due to mental status Past Medical History - SOCIAL HISTORY Smoking Status: Light tobacco smoker (<10/day) - RESPIRATORY Hx Respiratory Disorders: Yes Hx Asthma: Yes - CARDIOVASCULAR Hx Cardio Disorders: Yes Hx Hypertension: Yes - NEURO Hx Neuro Disorders: Yes Hx Headaches: Yes - GI Hx GI Disorders: Yes Hx Reflux: Yes - Hx Genitourinary Disorders: No - ENDOCRINE Hx Endocrine Disorders: No Hx Diabetes: No Hx Thyroid Disease: No - MUSCULOSKELETAL Hx Musculoskeletal Disorders: Yes Hx Arthritis: Yes - PSYCH Hx Psych Problems: No Comment:: STATES FEELS DEPRESSED - HEMATOLOGY/ONCOLOGY Hx Hematology/Oncology Disorders: Yes Comment:: HEP C Family Medical History Family Hx Comment (NOT TO BE USED IN PLACE OF ITEMS BELOW): unknown Physical Exam - General General Appearance: Other (Patient appears drowsy on examination after taking his benzodiazipine medication prior to arrival, will awaken to voice.) Limitations: Altered mental status - Head Head exam: Atraumatic, Normocephalic, Normal inspection Head exam detail: negative: Abrasion, Contusion, Jones's sign, General tenderness, Hematoma, Laceration - Eye Eye exam: Normal appearance. negative: Conjunctival injection, Periorbital swelling, Periorbital tenderness, Scleral icterus - ENT Ear exam: negative: Auricular hematoma, Auricular trauma Nasal Exam: negative: Active bleeding, Discharge, Dried blood, Foreign body Mouth exam: negative: Drooling, Laceration, Muffled voice, Tongue elevation - Neck Neck exam: Normal inspection. negative: Meningismus, Tenderness - Respiratory Respiratory exam: Normal lung sounds bilaterally. negative: Rales, Respiratory distress, Rhonchi, Stridor - Cardiovascular Cardiovascular Exam: Regular rate, Normal rhythm, Normal heart sounds - GI/Abdominal GI/Abdominal exam: Soft. negative: Rebound, Rigid, Tenderness - Rectal Rectal exam: Deferred - exam: Deferred - Extremities Extremities exam: Pedal edema (2+ pedal edema bilaterally, symmetric. Ligaments are stable on examination of the right knee, no evidence for septic joint, no evidence for acute injury on examination.). negative: Calf tenderness , Joint swelling, Tenderness - Back Back exam: Denies: CVA tenderness (R), CVA tenderness (L) - Neurological Neurological exam: Alert, Oriented X3 - Psychiatric Psychiatric exam: Normal affect, Normal mood - Skin Skin exam: Normal color. negative: Abrasion Type of lesion: negative: abrasion Course - Reevaluation(s) Reevaluation #1: 04/15/18 22:52 Laboratory studies were reviewed and are grossly unremarkable for an acute process. No evidence for septic joint on examination, and no clinical evidence for injury on examination. Patient's symptoms appear c/w lower extremity edema. Patient's pain symptoms are well controlled, and the patient appears stable for discharge at this time. Reevaluation #2: 04/15/18 23:18 Patient ambulated with steady gait, discharged home with caregiver. Medical Decision Making - Lab Data Result diagrams: 04/15/18 22:20 04/15/18 22:20 Disposition Disposition: Discharge Clinical Impression: Lower extremity edema Disposition: Home, Self-Care Condition: (2) Stable Instructions: Leg Edema (ED) Additional Instructions: Return to ED if your symptoms worsen or if you have any concerns. Continue Lasix and potassium as prescribed. Follow-up with your family doctor in 3-5 days as directed. Forms: Patient Portal Access Time of Disposition: 22:55 Quality - Quality Measures Quality Measures: N/A - Blood Pressure Screening Does Patient Have Any of the Following: No Blood Pressure Classification: Pre-Hypertensive BP Reading Systolic Measurement: 125 Diastolic Measurement: 82 Screening for High Blood Pressure: < Pre-Hypertensive BP, F/U Documented > [ G8950] Pre-Hypertensive Follow-up Interventions: Referral to alternative/primary care provider.
[2018-04-15 22:34] LABS: BASO % 0.8 % (0-6); EOS % 2.9 % (0-6); GRAN % 56.4 % (47-80); HEMATOCRIT 43.1 % (42.0-52.0); HEMOGLOBIN 14.5 gm/dl (14.0-18.0); LYMPH % 29.6 % (16-45); MEAN CELL VOLUME 100.7 fl (81-97); MEAN CORPUSCULAR HEMOGLOBIN 33.8 pg (27-33); MEAN CORPUSCULAR HGB CONC 33.6 g/dl (32-36); MEAN PLATELET VOLUME 10.4 fl (7.4-10.4); MONO % 10.3 % (0-9); PLATELET COUNT 211 K/uL (130-400); RED BLOOD COUNT 4.28 M/uL (4.40-5.70)
[2018-04-15 22:43] LABS: BLOOD UREA NITROGEN 11 mg/dL (6-20); CREATININE 0.8 mg/dL (0.7-1.2); EST GLOMERULAR FILTRATION RATE > 60 mL/min
[2018-04-15 22:44] LABS: TOTAL PROTEIN 7.4 g/dL (6.6-8.7)
[2018-04-15 22:46] LABS: GLUCOSE,RANDOM 103 mg/dL (74-109)
[2018-04-15 22:48] LABS: ALB/GLOB RATIO 1.1 (1.1-1.8); ALBUMIN 3.9 g/dL (4.0-5.0); ALKALINE PHOSPHATASE 135 U/L (40-129); ALT/SGPT 104 U/L (<41); AST/SGOT 95 U/L (10.0-50.0)
[2018-04-15 22:50] LABS: NTpro B-NATRIURETIC PEPTIDE 12.76 pg/mL (<125)
== END 2018-04-15 23:19 | disposition home or self-care (01) ==
LOC: ER 22:12
DX: R60.0 Localized edema (principal); I10 Essential (primary) hypertension; F17.210 Nicotine dependence, cigarettes, uncomplicated
CPT/HCPCS: 80053; 83880; 85025; 99283

== ENCOUNTER 2018-04-25 04:46 | Emergency (ER) | payer MEDICARE, MEDICAID ==
[2018-04-25] MEDS ORDERED: KETOROLAC 30 MG/ML VIAL IM ONE (04:51)
[2018-04-25] MEDS ORDERED: CLINDAMYCIN 150 MG CAP PO ONE (04:51)
--- NOTE | 2018-04-25 04:59 | Emergency Department Record ---
History of Present Illness - General Chief complaint: Dental Stated complaint: JAW PAIN Time Seen by Provider: 04/25/18 04:51 Source: Patient Mode of Arrival: Ambulatory Limitations: No limitations - History of Present Illness Initial comments: 57 yo male presents with right lower jaw pain for two days. He states it is sore to touch. He was unable to sleep tonight. No fevers or redness of the face. He reports he has had dental infections in the past. He states he goes to [facility] in [place]. No nausea, vomiting or diarrhea. No chest pain, shortness of breath, no choking or swallowing difficulties. No obvious facial swelling or neck swelling. He points to the right mandibular area. No ear pain. He reports he had a tooth pulled a few months ago in that area MD complaint: Tooth pain Onset/Timin -: Days(s) (2) Severity: Moderate Severity scale (1-10): 10 Quality: Aching Consistency: Constant Improves with: None Worsens with: None Context-Epistaxis: History of similar Context- Dental: History of dental caries Associated Symptoms: Toothache - Related Data Home Medications Medication Instructions Recorded Confirmed Last Taken Cholecalciferol (Vitamin D3) 2,000 unit PO DAILY 04/25/18 04/25/18 Unknown [Vitamin D3] Previous Rx's Medication Instructions Recorded Clindamycin HCl 300 mg PO QID #28 capsule 04/25/18 Allergies Allergy/AdvReac Type Severity Reaction Status Date / Time No Known Drug Allergies Allergy Verified 02/05/18 05:52 Travel Screening - Travel/Exposure Within Last 30 Days Have you traveled within the last 30 days?: No Review of Systems Constitutional: Denies: Chills, Fever, Malaise, Weakness Eyes: Denies: Eye discharge, Eye pain, Photophobia, Vision change ENT: Reports: Dental pain. Denies: Congestion, Throat pain Respiratory: Denies: Cough, Dyspnea Cardiovascular: Denies: Chest pain, Syncope Endocrine: Denies: Fatigue Gastrointestinal: Denies: Abdominal pain, Diarrhea, Nausea, Vomiting Genitourinary: Denies: Dysuria, Frequency Musculoskeletal: Denies: Arthralgia, Myalgia Skin: Denies: Bruising, Change in color, Rash Neurological: Denies: Headache Psychiatric: Reports: Anxiety Hematological/Lymphatic: Denies: Easy bleeding, Easy bruising Past Medical History - SOCIAL HISTORY Smoking Status: Light tobacco smoker (<10/day) Alcohol Use: None Drug Use: None - RESPIRATORY Hx Respiratory Disorders: Yes Hx Asthma: Yes - CARDIOVASCULAR Hx Cardio Disorders: Yes Hx Hypertension: Yes - NEURO Hx Neuro Disorders: Yes Hx Headaches: Yes - GI Hx GI Disorders: Yes Hx Reflux: Yes - Hx Genitourinary Disorders: No - ENDOCRINE Hx Endocrine Disorders: No Hx Diabetes: No Hx Thyroid Disease: No - MUSCULOSKELETAL Hx Musculoskeletal Disorders: Yes Hx Arthritis: Yes - PSYCH Hx Psych Problems: No Comment:: STATES FEELS DEPRESSED - HEMATOLOGY/ONCOLOGY Hx Hematology/Oncology Disorders: Yes Comment:: HEP C Family Medical History Any Significant Family History?: No Family Hx Comment (NOT TO BE USED IN PLACE OF ITEMS BELOW): unknown Physical Exam - General General Appearance: Alert, Oriented x3, Cooperative, No acute distress, Other ( sleeping very comfortable on arrival but easily awakens) Limitations: No limitations - Head Head exam: Normal inspection - Eye Eye exam: Normal appearance. negative: Conjunctival injection, Periorbital swelling - ENT ENT exam: Mucous membranes moist, TM's normal bilaterally. negative: Normal exam, Normal orophraynx Ear exam: Normal external inspection Nasal Exam: Normal inspection Mouth exam: Normal external inspection, Tongue normal, Other (Clear voice). negative: Drooling, Muffled voice, Tongue elevation Teeth exam: Dental tenderness # (31), Fractured tooth # (lower front incisor), Gingival enlargement (mild right lower posterior gum swelling and erythema, no teeth in this area. As small amount of pus was expressed on palpation, no visible abscess of any significant size, soft neck, no mass or erythema), Other (soft non tender submandibular area) Throat exam: Normal inspection. negative: Tonsillar erythema, Tonsillomegaly, Tonsillar exudate, R peritonsillar mass, L peritonsillar mass - Neck Neck exam: Normal inspection, Full ROM, Other (very supple neck, no swelling or asymmetry, no warmth or erythema). negative: Lymphadenopathy, Tenderness - Respiratory Respiratory exam: Normal lung sounds bilaterally. negative: Respiratory distress - Cardiovascular Cardiovascular Exam: Regular rate, Normal rhythm, Normal heart sounds - Neurological Neurological exam: Alert, Oriented X3 - Psychiatric Psychiatric exam: Normal affect, Normal mood - Skin Skin exam: Dry, Intact, Normal color, Warm Course Vital Signs 04/25/18 04:52 Temperature 98.2 F Pulse Rate [ 65 Pulse Ox Probe] Respiratory 20 Rate Blood Pressure 139/97 [Left Arm] Pulse Ox 94 L - Reevaluation(s) Reevaluation #1: On arrive the patient was seen and examined. No acute distress, sleeping comfortably but easily awakens, clear voice The examination is consistent with a dental infection with localized tenderness and slight pus drainage right lower posterior gum in the area of former #31 No facial or neck swelling, no dysarthria, no dysphagia The submandibular area is soft without swelling; widely patent posterior oral pharynx Oral antibiotics and Toradol provided Patient sleeps but wakens asking for [place] I explained that with his other home medications the interactions can be dangerous and I do not recommend mixing medication with sedative side effects 04/25/18 04:59 04/25/18 05:02 EMS EKG reviewed. NSR, rate is 76, intervals normal, axis L, ST normal. No acute changes 04/25/18 05:20 Local dental block with mixture of bupivcaine/lidocaine placed The patient tolerated this well The patient is asking for narcotics. I did inform him that mixing narcotics with his current home medication can not be done safely. He will need to call his dentist this morning for close follow up He tolerated PO food well without any difficulty 04/25/18 05:23 Disposition Disposition: Discharge Clinical Impression: Pain due to dental caries, Dental abscess Disposition: Home, Self-Care Condition: (1) Good Instructions: Dental Abscess (ED) Additional Instructions: Call [facility] tomorrow to schedule a follow up visit Return or be seen if worse, fever, swelling You must take your antibiotics as directed until gone Prescriptions: Clindamycin HCl 300 mg PO QID #28 capsule Forms: Patient Portal Access Time of Disposition: 05:26 Quality - Quality Measures Quality Measures: N/A - Blood Pressure Screening Does Patient Have Any of the Following: Active Dx of HTN Blood Pressure Classification: Hypertensive Reading Systolic Measurement: 139 Diastolic Measurement: 97 Screening for High Blood Pressure: Patient Exclusion, Hx of HTN [G9744]
[2018-04-25] MEDS ORDERED: ACETAMINOPHEN 500 MG TABLET PO ONE (05:21)
== END 2018-04-25 05:32 | disposition home or self-care (01) ==
LOC: ER 04:46
DX: K04.7 Periapical abscess without sinus (principal); K02.9 Dental caries, unspecified; I10 Essential (primary) hypertension; F17.210 Nicotine dependence, cigarettes, uncomplicated
CPT/HCPCS: 64400; 96372; 99284; J1885

== ENCOUNTER 2019-05-04 09:59 | Emergency (ER) | payer MEDICARE, MEDICAID ==
--- NOTE | 2019-05-04 10:09 | Emergency Department Record ---
History of Present Illness - General Chief complaint: Vomiting Stated complaint: VOMITING Time Seen by Provider: 05/04/19 10:08 Source: Patient Mode of Arrival: EMS Limitations: No limitations - History of Present Illness Initial comments: The patient is here due to total body pain for the last few days. He also feels weak all over. The patient did vomit once about an hour ago but had not prior. He is from the [facility] and would like some "uppers" or Valium. There has been no hx of HOUSE, fever, neck pain, CP, SOB, AP, or dysuria. MD complaint: Other Onset/Timin -: Days(s) Associated Symptoms: Weakness, Other - Related Data Home Medications Medication Instructions Recorded Confirmed Last Taken Albuterol Sulfate [Ventolin Hfa] 1 - 2 puff IH .EVERY 4-6 HOURS PRN 05/04/19 05/04/19 Unknown Amlodipine Besylate [Norvasc] 10 mg PO DAILY 05/04/19 05/04/19 05/04/19 Atenolol/Chlorthalidone 1 each PO DAILY 05/04/19 05/04/19 05/04/19 [Atenolol-Chlorthalidone 100-25] Brimonidine Tartrate 0.2% Opth 1 drop OP BID 05/04/19 05/04/19 05/03/19 [Brimonidine Tartrate] Cholecalciferol (Vitamin D3) 2,000 unit PO DAILY 05/04/19 05/04/19 05/04/19 [Vitamin D3] Clonazepam 0.5 mg PO BID 05/04/19 05/04/19 05/03/19 Fluphenazine HCl 10 mg PO DAILY 05/04/19 05/04/19 05/04/19 Fluticasone Propion/Salmeterol 1 each IH BID 05/04/19 05/04/19 05/04/19 [Advair 250-50 Diskus] Loratadine 10 mg PO DAILY 05/04/19 05/04/19 05/04/19 Multivitamin with Iron [Tab-A-Faye 1 each PO DAILY 05/04/19 05/04/19 05/04/19 with Iron] Olanzapine [Zyprexa] 40 mg PO QHS 05/04/19 05/04/19 05/04/19 Tamsulosin HCl [Flomax] 0.4 mg PO DAILY 05/04/19 05/04/19 05/04/19 Tiotropium [place] [Spiriva] 18 mcg IH DAILY 05/04/19 05/04/19 05/04/19 Previous Rx's Medication Instructions Recorded Naproxen [Naprosyn] 500 mg PO BID #14 tablet. 05/04/19 Ondansetron [Zofran Odt] 4 mg SL .Q4-6H PRN #12 tab.rapdis 05/04/19 Allergies Allergy/AdvReac Type Severity Reaction Status Date / Time No Known Drug Allergies Allergy Verified 05/04/19 10:08 Travel Screening - Travel/Exposure Within Last 30 Days Have you traveled within the last 30 days?: No - Travel/Exposure Within Last Year Have you traveled outside the [place] in the last year?: No - Additonal Travel Details Have you been exposed to anyone with a communicable illness?: No Review of Systems Constitutional: Reports: Malaise. Denies: Chills, Fever Eyes: Denies: Eye discharge ENT: Denies: Congestion Respiratory: Denies: Cough Cardiovascular: Denies: Chest pain Endocrine: Reports: Fatigue Gastrointestinal: Reports: Nausea, Vomiting. Denies: Diarrhea Genitourinary: Denies: Dysuria Musculoskeletal: Denies: Arthralgia Past Medical History - SOCIAL HISTORY Smoking Status: Light tobacco smoker (<10/day) Alcohol Use: None Drug Use: None - RESPIRATORY Hx Respiratory Disorders: Yes Hx Asthma: Yes - CARDIOVASCULAR Hx Cardio Disorders: Yes Hx Hypertension: Yes - NEURO Hx Neuro Disorders: Yes Hx Headaches: Yes - GI Hx GI Disorders: Yes Hx Reflux: Yes - Hx Genitourinary Disorders: No - ENDOCRINE Hx Endocrine Disorders: No Hx Diabetes: No Hx Thyroid Disease: No - MUSCULOSKELETAL Hx Musculoskeletal Disorders: Yes Hx Arthritis: Yes - PSYCH Hx Psych Problems: No Comment:: STATES FEELS DEPRESSED - HEMATOLOGY/ONCOLOGY Hx Hematology/Oncology Disorders: Yes Comment:: HEP C Family Medical History Any Significant Family History?: No Family Hx Comment (NOT TO BE USED IN PLACE OF ITEMS BELOW): unknown Physical Exam - General General Appearance: Alert, Cooperative, No acute distress - Head Head exam: Atraumatic, Normocephalic - Eye Eye exam: Normal appearance, PERRL, EOMI - ENT Throat exam: Normal inspection. negative: Tonsillar erythema, Tonsillar exudate - Neck Neck exam: Normal inspection, Full ROM. negative: Meningismus, Tenderness - Respiratory Respiratory exam: Normal lung sounds bilaterally. negative: Respiratory distress - Cardiovascular Cardiovascular Exam: Regular rate, Normal rhythm, Normal heart sounds - GI/Abdominal GI/Abdominal exam: Soft, Normal bowel sounds. negative: Tenderness - Extremities Extremities exam: Normal inspection, Full ROM, Normal capillary refill. negative: Tenderness - Back Back exam: Reports: Normal inspection - Neurological Neurological exam: Alert, Normal gait, Oriented X3. negative: Abnormal gait, Altered, Motor sensory deficit - Skin Skin exam: negative: Rash Course Vital Signs 05/04/19 10:02 Temperature 98.5 F Pulse Rate 85 Respiratory 20 Rate Blood Pressure 106/75 Pulse Ox 96 - Reevaluation(s) Reevaluation #1: The patient is doing better at this time. He is still complaining of knee and ankle pain so we will order Toradol. 05/04/19 11:19 Reevaluation #2: The patient is doing a lot better at this time. He has no nausea or vomiting and denies any HOUSE. He is up walking without difficulty and is ready for home. 05/04/19 11:38 Medical Decision Making - Data Complexity MDM Data: Labs Ordered and/or Reviewed - Lab Data Result diagrams: 05/04/19 10:27 05/04/19 10:27 Disposition Disposition: Discharge Clinical Impression: Nausea and vomiting Qualifiers: Vomiting type: unspecified Vomiting Intractability: unspecified Qualified Code(s): R11.2 - Nausea with vomiting, unspecified Disposition: Home, Self-Care Condition: (2) Stable Instructions: Acute Nausea and Vomiting (ED) Additional Instructions: Please continue your regular medicines and use Zofran for nausea and take Naprosyn for pain. Please see your family doctor on Tuesday for recheck. Return to the ER for any worsening symptoms. Prescriptions: Naproxen [Naprosyn] 500 mg PO BID #14 tablet. Ondansetron [Zofran Odt] 4 mg SL .Q4-6H PRN #12 tab.rapdis PRN Reason: Nausea Forms: Patient Portal Access Time of Disposition: 11:42 Quality - Quality Measures Quality Measures: N/A - Blood Pressure Screening View Details: Yes Does Patient Have Any of the Following: No Blood Pressure Classification: Normal BP Reading Systolic Measurement: 106 Diastolic Measurement: 75 Screening for High Blood Pressure: < Normal BP, F/U Not Required > [G8724]
[2019-05-04] MEDS ORDERED: 0.9 % SODIUM CHLORIDE 1,000 ML BAG IV ONE (10:17)
[2019-05-04] MEDS ORDERED: ACETAMINOPHEN 1,000 MG/100 ML BTL IVPB ONE (10:17)
[2019-05-04] MEDS ORDERED: ONDANSETRON HCL IV 4 MG/2 ML VIAL IV ONE (10:17)
[2019-05-04 10:41] LABS: ABSOLUTE NEUTROPHIL COUNT 10.86; HEMATOCRIT 52.2 % (42.0-52.0); HEMOGLOBIN 17.7 gm/dl (14.0-18.0); MEAN CELL VOLUME 100.8 fl (81-97); MEAN CORPUSCULAR HEMOGLOBIN 34.2 pg (27-33); MEAN CORPUSCULAR HGB CONC 33.9 g/dl (32-36); PLATELET COUNT 221 K/uL (130-400); RED BLOOD COUNT 5.18 M/uL (4.40-5.70); RED CELL DISTRIBUTION WIDTH 11.8 % (11.5-14.5); WHITE BLOOD COUNT W/O DIFF 11.6 K/uL (4.2-12.2)
[2019-05-04 10:53] LABS: BLOOD UREA NITROGEN 18 mg/dL (6-20); CREATININE 0.8 mg/dL (0.7-1.2); EST GLOMERULAR FILTRATION RATE > 60 mL/min
[2019-05-04 10:54] LABS: TOTAL PROTEIN 7.4 g/dL (6.6-8.7)
[2019-05-04 10:56] LABS: GLUCOSE,RANDOM 138 mg/dL (74-109)
[2019-05-04 10:57] LABS: PLATELET ESTIMATE NORMAL (NORMAL)
[2019-05-04 10:59] LABS: ALKALINE PHOSPHATASE 101 U/L (40-129); ALT/SGPT 70 U/L (<41); AST/SGOT 45 U/L (10.0-50.0); BILIRUBIN,DIRECT 0.3 mg/dL (0-0.3); C-REACTIVE PROTEIN 0.23 mg/dL (<0.5)
[2019-05-04] MEDS ORDERED: POTASSIUM CHLORIDE 20 MEQ TABLET PO ONE (11:08)
[2019-05-04] MEDS ORDERED: KETOROLAC 30 MG/ML VIAL IVP ONE (11:16)
== END 2019-05-04 11:55 | disposition home or self-care (01) ==
LOC: ER 09:59
DX: R11.2 Nausea with vomiting, unspecified (principal); R53.1 Weakness; I10 Essential (primary) hypertension; F17.210 Nicotine dependence, cigarettes, uncomplicated; M25.569 Pain in unspecified knee; M25.579 Pain in unspecified ankle and joints of unspecified foot
CPT/HCPCS: 99283; 96365; 96375; 99284; 80076; 86140; 80048; 85027; J1885; J2405; J7030